=== PATIENT | female | born 1985 | race Two or more races ===

== ENCOUNTER 2018-09-26 07:48 | Outpatient (CLI) | payer OTHER | END 2018-09-26 07:51 | disposition home or self-care (01) | LOC: SONOGRAMA 07:48 | DX: Z34.80 Encounter for supervision of other normal pregnancy, unspecified trimester (principal) ==

== ENCOUNTER → 2018-11-20 | Outpatient (CLI) | payer OTHER | END | disposition home or self-care (01) | LOC: PRENATAL 15:30 | DX: O26.892 Other specified pregnancy related conditions, second trimester (principal); O09.92 Supervision of high risk pregnancy, unspecified, second trimester ==

== ENCOUNTER 2019-01-28 13:42 | Outpatient (CLI) | payer OTHER | END 2019-01-28 15:00 | disposition home or self-care (01) | LOC: PRENATAL 13:42 | DX: O26.843 Uterine size-date discrepancy, third trimester (principal); O24.420 Gestational diabetes mellitus in childbirth, diet controlled ==

== ENCOUNTER → 2019-03-11 | Outpatient (CLI) | payer OTHER ==
[~2019-03-11] MED LIST: METFORMIN HCL500 M3 PO; NASAL MIST126 ML
== END | disposition home or self-care (01) ==
LOC: PRENATAL 09:57
DX: O24.410 Gestational diabetes mellitus in pregnancy, diet controlled (principal); O26.843 Uterine size-date discrepancy, third trimester

== ENCOUNTER 2019-03-26 13:45 | Inpatient (IN) | payer OTHER ==
[~2019-03-26] VITALS: Ht 160 cm; Wt 77.1 kg
[2019-04-02] MEDS ORDERED: NASAL MIST126 ML (07:13)
[2019-04-02] MEDS ORDERED: METFORMIN HCL500 M3 PO (07:13)
== END 2019-04-04 13:41 | disposition home or self-care (01) | DRG 807 ==
LOC: OB/GYN 13:45 → LDR 04-02 05:23 → OB/GYN 04-02 05:23 → LDR 04-02 06:50 → OB/GYN 04-02 14:36 → LDR 04-15 13:45
PROVIDERS: ADMIT Specialist
PROC: 10E0XZZ Delivery of Products of Conception, External Approach (ICD-10-PCS; principal; 2019-04-02)
PROC: 10907ZC Drainage of Amniotic Fluid, Therapeutic from Products of Conception, Via Natural or Artificial Opening (ICD-10-PCS; 2019-04-02)
PROC: 3E033VJ Introduction of Other Hormone into Peripheral Vein, Percutaneous Approach (ICD-10-PCS; 2019-04-02)
PROC: 4A1HXCZ Monitoring of Products of Conception, Cardiac Rate, External Approach (ICD-10-PCS; 2019-04-02)
DX: O80 Encounter for full-term uncomplicated delivery (principal); Z37.0 Single live birth; Z3A.38 38 weeks gestation of pregnancy; Z22.330 Carrier of Group B streptococcus